=== PATIENT | male | born 1955 | race Two or more races ===

== ENCOUNTER 2016-06-21 17:10 | Inpatient (IN) | payer MEDICAID, OTHER ==
[~2016-06-21] VITALS: Ht 172.7 cm; Wt 75.1 kg
[2016-06-21 18:02] LABS: Basophils # (auto) 0 uL; Basophils % (auto) 0.5 % (0.0-2.0); Eosinophils # (auto) 0.3 uL; Hematocrit 44.1 % (41.0-53.0); Hemoglobin 14.9 g/dL (13.5-17.5); Lymphocytes % (auto) 30.4 % (10.0-50.0); Mean Corpuscular Hemoglobin 30.1 pg (28.0-32.0); Mean Corpuscular Hgb Conc. 33.8 g/dL (32.0-36.0); Mean Corpuscular Volume 89.2 fL (80.0-100.0); Mean Platelet Volume 8.5 fL (7.4-10.4); Monocytes # (auto) 0.6 uL; Monocytes % (auto) 8.6 % (0.0-12.0); Neutrophils # (auto) 3.6 uL; Neutrophils % (auto) 56.5 % (37.0-80.0); Platelet Count (auto) 273 10^3/uL (140-450); Red Cell Distribution Width 14.4 % (11.6-16.0); White Blood Cell 6.4 10^3/uL (4.4-10.8)
[2016-06-21 18:22] LABS: Albumin 3.8 g/dL (3.4-5.0); Bilirubin, Total 0.9 mg/dL (0.2-1.0); Calcium 8.6 mg/dL (8.5-10.1); Potassium 4.2 mmol/L (3.5-5.1); Total Protein 7.3 g/dL (6.4-8.2)
[2016-06-22] VITALS (7 sets, daily range): BP systolic 98–158; BP diastolic 60–77
[2016-06-22] MEDS ORDERED: TEMAZEPAM 15 MG CAP PO PRN (03:15)
[2016-06-22] MEDS ORDERED: ACETAMINOPHEN 325 MG TAB PO PRN (03:15)
[2016-06-22] MEDS ORDERED: ONDANSETRON HCL 4 MG/2 ML VIAL IV PRN (03:15)
[2016-06-22] MEDS ORDERED: DOCUSATE SOD 100 MG CAP PO PRN (03:15)
[2016-06-22] MEDS: FAMOTIDINE 20 MG TAB PO SCH ×2 (10:13→21:44)
[2016-06-22] MEDS: ENOXAPARIN SOD 40 MG/0.4 ML SYRINGE SC SCH (10:15)
[2016-06-22 11:01] LABS: Prothrombin Time 10.8 sec (9.37-12.3)
[2016-06-23 05:00] VITALS: BP 106/74
[2016-06-23 06:13] LABS: Basophils # (auto) 0 uL; Basophils % (auto) 0.6 % (0.0-2.0); Eosinophils # (auto) 0.2 uL; Eosinophils % (auto) 4.1 % (0.0-7.0); Hematocrit 46.3 % (41.0-53.0); Hemoglobin 15.7 g/dL (13.5-17.5); Lymphocytes # (auto) 1.7 uL; Lymphocytes % (auto) 28.7 % (10.0-50.0); Mean Corpuscular Hemoglobin 30.2 pg (28.0-32.0); Mean Corpuscular Hgb Conc. 33.8 g/dL (32.0-36.0); Mean Corpuscular Volume 89.3 fL (80.0-100.0); Mean Platelet Volume 8.2 fL (7.4-10.4); Monocytes # (auto) 0.5 uL; Monocytes % (auto) 7.9 % (0.0-12.0); Neutrophils # (auto) 3.5 uL; Neutrophils % (auto) 58.7 % (37.0-80.0); Platelet Count (auto) 271 10^3/uL (140-450)
[2016-06-23 06:46] LABS: Albumin 3.4 g/dL (3.4-5.0); Calcium 8.8 mg/dL (8.5-10.1); Potassium 4.1 mmol/L (3.5-5.1)
[2016-06-23 06:48] LABS: BUN/Creatinine Ratio 15.7
[2016-06-23 06:50] LABS: Bilirubin, Total 1.3 mg/dL (0.2-1.0); Total Protein 6.9 g/dL (6.4-8.2)
[2016-06-23 08:00] VITALS: BP 104/70
[2016-06-23] MEDS: FAMOTIDINE 20 MG TAB PO SCH ×2 (09:04→21:53)
[2016-06-23] MEDS: ENOXAPARIN SOD 40 MG/0.4 ML SYRINGE SC SCH (09:04)
[2016-06-23 09:06] VITALS: BP 104/70
[2016-06-23 12:00] VITALS: BP 107/67
[2016-06-23 18:20] VITALS: BP 97/70
[2016-06-23 22:00] VITALS: BP 115/68
[2016-06-24 05:00] VITALS: BP 105/72
[2016-06-24 09:00] VITALS: BP 104/69
[2016-06-24] MEDS: FAMOTIDINE 20 MG TAB PO SCH ×2 (10:00→21:20)
[2016-06-24] MEDS: ENOXAPARIN SOD 40 MG/0.4 ML SYRINGE SC SCH (10:00)
[2016-06-24] MEDS ORDERED: ceFAZolin 1GM/50ML D5W 50 ML IV ONE (10:54)
[2016-06-24] MEDS ORDERED: MIDAZOLAM HCL 1MG/1ML-2 ML VIAL ONE (11:35)
[2016-06-24] MEDS ORDERED: PROPOFOL 10 MG/ML 20 ML IV ONE (11:35)
[2016-06-24] MEDS ORDERED: fentaNYL CITRATE 100 MCG/2 ML VL ONE ×2 (11:35→12:06)
[2016-06-24] MEDS ORDERED: ONDANSETRON HCL 4 MG/2 ML VIAL IV ONE (13:00)
[2016-06-24] MEDS: HYDROmorphone HCL 2 MG/ML VL IV PRN ×3 (13:00→13:20)
[2016-06-24] MEDS ORDERED: ePHEDrine SULFATE 50 MG/ML AMP IV PRN (13:00)
[2016-06-24] MEDS ORDERED: hydrALAZINE HCL 20 MG/ML VL IV PRN (13:00)
[2016-06-24] MEDS: HYDROcodone-ACET 5/325MG TAB PO PRN ×2 (14:55→19:57)
[2016-06-24 16:50] VITALS: BP 110/63
[2016-06-24 22:00] VITALS: BP 101/62
[2016-06-25] MEDS: HYDROcodone-ACET 5/325MG TAB PO PRN ×4 (01:10→14:16)
[2016-06-25 05:00] VITALS: BP 103/61
[2016-06-25 05:29] LABS: Basophils # (auto) 0 uL; Basophils % (auto) 0.4 % (0.0-2.0); Eosinophils # (auto) 0.2 uL; Eosinophils % (auto) 2.1 % (0.0-7.0); Hematocrit 44.6 % (41.0-53.0); Hemoglobin 15.1 g/dL (13.5-17.5); Lymphocytes # (auto) 1.6 uL; Lymphocytes % (auto) 19.3 % (10.0-50.0); Mean Corpuscular Hemoglobin 30.2 pg (28.0-32.0); Mean Corpuscular Hgb Conc. 33.8 g/dL (32.0-36.0); Mean Corpuscular Volume 89.3 fL (80.0-100.0); Mean Platelet Volume 8.5 fL (7.4-10.4); Monocytes # (auto) 0.6 uL; Monocytes % (auto) 7.5 % (0.0-12.0); Neutrophils # (auto) 5.7 uL; Neutrophils % (auto) 70.7 % (37.0-80.0); Platelet Count (auto) 270 10^3/uL (140-450); Red Cell Distribution Width 13.9 % (11.6-16.0)
[2016-06-25 05:59] LABS: BUN/Creatinine Ratio 15.9; Calcium 8.4 mg/dL (8.5-10.1); Magnesium 2.1 mg/dL (1.6-2.6); Potassium 4.4 mmol/L (3.5-5.1)
[2016-06-25 09:00] VITALS: BP 92/51
[2016-06-25] MEDS: ENOXAPARIN SOD 40 MG/0.4 ML SYRINGE SC SCH (10:48)
[2016-06-25] MEDS: FAMOTIDINE 20 MG TAB PO SCH (10:48)
[2016-06-25 13:00] VITALS: BP_SYST 122; BP_SYST 97; BP_DIAS 71; BP_DIAS 86
[2016-06-25] MEDS ORDERED: DOCU-94 PO (13:47)
[2016-06-25] MEDS ORDERED: NOR5T PO (13:47)
[2016-06-25 16:19] VITALS: BP 97/71
== END 2016-06-25 17:00 | disposition home or self-care (01) | DRG 228 ==
LOC: ER 17:27 → OVERFLOW 17:28 → EAST 06-22 04:05
PROVIDERS: ADMIT Nurse Practitioner; ATTEND Internal Medicine
PROC: 0YQ50ZZ Repair Right Inguinal Region, Open Approach (ICD-10-PCS; principal; 2016-06-24 11:34)
DX: K40.91 Unilateral inguinal hernia, without obstruction or gangrene, recurrent (principal); J98.11 Atelectasis; K57.30 Diverticulosis of large intestine without perforation or abscess without bleeding; Z82.49 Family history of ischemic heart disease and other diseases of the circulatory system; Z83.3 Family history of diabetes mellitus
CPT/HCPCS: 36415; 71010; 74176; 80048; 80053; 83735; 85025; 85610; 93005; J0690; J2250; J2704

== ENCOUNTER 2017-07-17 14:54 | Emergency (ER) | payer MEDICAID ==
[~2017-07-17] VITALS: Ht 170.2 cm; Wt 73.9 kg
[~2017-07-17 14:54] MED LIST: DOCU-94 PO; HYDR-4683 PO
[2017-07-17 19:55] VITALS: BP 114/65
== END 2017-07-17 19:57 | disposition home or self-care (01) ==
LOC: ER 15:00
DX: K40.20 Bilateral inguinal hernia, without obstruction or gangrene, not specified as recurrent (principal); F17.210 Nicotine dependence, cigarettes, uncomplicated; Z79.899 Other long term (current) drug therapy
CPT/HCPCS: 74176